=== PATIENT | male | born 1985 | race African-American/Black ===

== ENCOUNTER 2019-01-22 20:32 | Inpatient (IN) | payer BC ==
[2019-01-22 21:44] LABS: ALT (SGPT) 43 U/L (8-55); AST (SGOT) 29 U/L (5-34); Albumin 6.1 g/dL (3.5-5.0); Alkaline Phosphatase 74 U/L (40-110); Anion Gap 20 mmol/L (10-20); BUN (Urea Nitrogen) 25 mg/dL (8.9-20.6); Bilirubin, Total 0.6 mg/dL (0.2-1.2); CK (CPK) 293 U/L (30-200); Calc. Creatinine Clearance 0 mL/min (70-130); Carbon Dioxide 26 mmol/L (22-29); Chloride 95 mmol/L (98-107); Estimated GFR-MDRD 20; Globulin 4.8 g/dL (2.4-3.5); Glucose 161 mg/dL (70-105); Potassium 5.3 mmol/L (3.5-5.1); Protein, Total 10.9 g/dL (6.0-8.3); Sodium 136 mmol/L (136-145)
[2019-01-22 22:02] LABS: Band 2 % (5-11); Hemoglobin 18.9 g/dL (14.0-18.0); Lymphocytes 3 % (21-51); MDiff Complete? YES; Mean Corpuscular HGB CONC 34.7 g/dL (32.0-36.0); Mean Corpuscular Hemoglobin 33.7 pg (27.0-31.0); Mean Platelet Volume 7.7 fL (7.4-10.4); Monocytes 3 % (0-10); Neutrophil 92 % (42-75); Platelet Count 249 thou/uL (130-400); Platelet Morphology Comment Appears Adequate; RBC Distribution Width 11.6 % (11.5-14.5); RBC Morphology Normal; White Blood Cell (WBC) Count 17.8 thou/uL (4.8-10.8)
--- NOTE | 2019-01-22 23:10 | PDOC.FPRHP ---
- History of Present Illness Chief Complaint: Dizziness, Cramping History of Present Illness: Mr. 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 He reports sweating profusely while at work, which is outside and requires a considerable amount of PPE, and reports minimal water intake during that time. At approximately 1300, he began to feel nauseated and vomited twice. Despite drinking 1 bottle of water , he continued to feel poorly and also began to have feelings of lightheadedness. He was able to finish his shift, but only after considerable fatigue and discomfort. Once he returned home, he began to experience full-body cramps and required considerable assistance from his to put on clothes and drive to the ED. Per the patient's , his voice seemed raspier than normal, and he was almost too weak to answer questions upon arrival. He denies any syncopal episodes or known trauma, headaches, visual or auditory disturbances, cough, sore throat, chest pain, SOB, diarrhea or dysuria, known recent illness or sick contacts, or acute intoxication from EtOH or illicit drugs. ED Course: While in the ED, Mr. Bailey received a 2L NS bolus via IV and reportedly began to feel much better. - Allergies/Adverse Reactions Allergies Allergy/AdvReac Type Severity Reaction Status Date / Time No Known Allergies Allergy Verified 01/23/19 02:47 - Home Medications Comments: None - History PMHx: None PSHx: Inguinal Hernia Repair FHx: Mother (DM, HTN) Social: Social EtOH. Denies tobacco or drug abuse. - Review of Systems General: reports: fatigue. denies: fever/chills, night sweats Eyes: denies: eye pain, vision changes ENT: denies: nasal congestion, rhinorrhea Respiratory: denies: cough, shortness of breath Cardiovascular: denies: chest pain, edema Gastrointestinal: reports: nausea, vomiting. denies: diarrhea, constipation, abdominal pain, GI bleeding Genitourinary: reports: other (Denies any blood in urine). denies: dysuria, polyuria Skin: denies: rashes, lesions, itching Musculoskeletal: reports: stiffness, swelling (Girlfriend reports having feet swelling.). denies: pain Neurological: denies: numbness Psychological: denies: anxiety, depression - Vital signs BP: [124/82] HR: [91] RR: [18] Tmax: [98.9] Pox: [97]% on [RA] Wt: [] - Physical Exam Constitutional: NAD, awake, alert and oriented, well developed HEENT: normocephalic and atraumatic, PERRLA, EOMI, conjunctiva clear, no scleral icterus, grossly normal vision, grossly normal hearing, other (Mucous membranes appeared pale, dry) Neck: supple, FROM, trachea midline, no LAD Chest: no-tender to palpation, no lesions Heart: RRR, normal S1/S2, no murmurs/rubs/gallops, pulses present, no edema Lungs: CTAB, no respiratory distress, good air movement, no rales/rhonchi, no wheezing, no retractions Abdomen: soft, non-tender, bowel sounds present, no masses/distention, no hernias Musculoskeletal: normal structure, normal tone, ROM grossly normal Neurological: no focal deficit Skin: no rash/lesions, other (Cap Refill > 3) Heme/Lymphatic: no unusual bruising or bleeding, no purpura, no petechia, no LAD Psychiatric: normal mood and affect, good judgment and insight, intact recent and remote memory FMR H&P: Results - Labs Result Diagrams: 01/23/19 03:37 01/23/19 03:37 Lab results: WBC 17.8 thou/uL (4.8-10.8) H 01/22/19 21:15 Hgb 18.9 g/dL (14.0-18.0) H 01/22/19 21:15 Hct 54.4 % (42.0-52.0) H 01/22/19 21:15 MCV 97.0 fL (78.0-98.0) 01/22/19 21:15 Plt Count 249 thou/uL (130-400) 01/22/19 21:15 Band Neuts % (Manual) 2 % (5-11) L 01/22/19 21:15 Sodium 136 mmol/L (136-145) 01/22/19 21:15 Potassium 5.3 mmol/L (3.5-5.1) H 01/22/19 21:15 Chloride 95 mmol/L (98-107) L 01/22/19 21:15 Carbon Dioxide 26 mmol/L (22-29) 01/22/19 21:15 BUN 25 mg/dL (8.9-20.6) H 01/22/19 21:15 Creatinine 3.49 mg/dL (0.7-1.3) H 01/22/19 21:15 Glucose 161 mg/dL (70-105) H 01/22/19 21:15 Calcium 12.0 mg/dL (7.8-10.44) H 01/22/19 21:15 Total Bilirubin 0.6 mg/dL (0.2-1.2) 01/22/19 21:15 AST 29 U/L (5-34) 01/22/19 21:15 ALT 43 U/L (8-55) 01/22/19 21:15 Alkaline Phosphatase 74 U/L (40-110) 01/22/19 21:15 Creatine Kinase 293 U/L (30-200) H 01/22/19 21:15 Serum Total Protein 10.9 g/dL (6.0-8.3) H 01/22/19 21:15 Albumin 6.1 g/dL (3.5-5.0) H 01/22/19 21:15 FMR H&P: A/P - Plan 1. Dehydration -Patient's HPI, ROS and physical exam are consistent w/ dehydration, likely 2/2 to poor PO intake and outdoor employment -Patient's condition improved greatly s/p 2L NS bolus in the ED -Continue fluid resuscitation w/ LR @ 200 ml/hr -Encourage additional PO intake 2. DAVE -Cr: 3.49 -CPK: 290 -Continue to trend lab values to evaluate progression of rehydration efforts -See #1 Code Status: Full DVT PPx: SCDs Diet: Heart Healthy w/ Low Sodium Activity: Ad Madeleine Dispo: Patient admitted to the Medical Floor for aggressive fluid resuscitation. Will continue to trend Cr and CPK in order to evaluated for resolving DAVE and potential rhabdomyolysis. Expected LOS < 24H. FMR H&P: Upper Level - Pertinent history I was present with the biology internship. I scribed the above HPI. I agree with above and made edits as needed. - Pertinent findings Cap refill >5 seconds. Mucous membranes dry. - Plan Date/Time: 01/22/192307 Isrrael Mcknight, PGY-3, have evaluated this patient and agree with findings/ plan as outlined by biology internship resident. Pertinent changes/additions are listed here. Pt has DAVE with Cr at 3 2/2 dehydration. CK 293. No concern for rhabdo at this time. Pt labs show hemoconcentration 2/2 dehydration. K 5.3. EKG shows no abnormalities. Pt reports feeling better after fluid bolus in ER. Will continue with fluid rescusitation w/ NS@200ml/hr. Will trend AM labs. Will continue to monitor Urine output. Addendum - Attending - Attending Attestation Date/Time: 01/23/191946 I personally evaluated the patient and discussed the management with Dr. Ritter and De prior to midnight last night. I agree with the History, Examination, Assessment and Plan documented above with any addition or exceptions noted below.
[2019-01-23] MEDS ORDERED: Ondansetron ODT 4 MG TAB PO PRN (00:15)
[2019-01-23] MEDS ORDERED: Acetaminophen 325 MG TAB PO PRN (00:15)
[2019-01-23 01:05] LABS: Bacteria/HPF None Seen HPF (None Seen); Bilirubin Negative (Negative); Blood, Urine Trace (Negative); Clarity Turbid (Clear); Glucose, Urine (Dipstick) Normal (Negative); Leukocyte Negative Leu/uL (Negative); Mucous/LPF Rare LPF (<2+); Nitrite Negative (Negative); Protein, Urine (Dipstick) 30 mg/dL (Neg-Trace); RBC/HPF 0-3 HPF (0-3); Squamous Epithelial 0-3 HPF (0-3); Urobilinogen Normal mg/dL (Less than 2)
[2019-01-23 01:15] LABS: Amphetamine Not Detected (NotDetected); Barbiturates Screen Not Detected (NotDetected); Benzodiazepine Screen Not Detected (NotDetected); Cocaine Metabolite Screen Not Detected (NotDetected); Medtox Control Line Valid? VALID (VALID); Medtox Reader # READER 4; Methadone Not Detected (NotDetected); Methamphetamine Not Detected (NotDetected); Opiate Screen Not Detected (NotDetected); Oxycodone Screen Not Detected (NotDetected); Phencyclidine (PCP) Not Detected (NotDetected); THC/Cannabinoid Screen Not Detected (NotDetected); Tricyclic Screen Not Detected (NotDetected)
[2019-01-23 01:27] VITALS: BMI 23.3
[2019-01-23] MEDS: Sodium Chloride 0.9% 1,000 ML IV SCH ×4 (01:49→17:48)
--- NOTE | 2019-01-23 02:41 | PDOC.FM ---
- Objective Vital Signs & Weight: Vital Signs (12 hours) Temp Pulse Resp BP Pulse Ox 01/23/19 01:30 98 01/23/19 01:20 98.1 F 86 18 107/46 L 98 Weight Weight 65.771 kg Result Diagrams: 01/22/19 21:15 01/22/19 21:15 Addendum - Attending - Attending Attestation Date/Time: 01/23/19 0240 I personally evaluated the patient and discussed the management with Dr. Ritter last evening on 01/22/19. I agree with the History, Examination, Assessment and Plan as discussed. H&P pending.
[2019-01-23 03:44] LABS: #Monocytes 0.9 thou/uL (0.11-0.59); #Neutrophils 7.7 thou/uL (1.40-6.50); %Basophils 0.2 % (0.0-1.0); %Eosinophils 0.1 % (0.0-10.0); %Lymphocytes 9.9 % (21.0-51.0); %Monocytes 9.2 % (0.0-10.0); %Neutrophils 80.6 % (42.0-75.0); Hemoglobin 15.4 g/dL (14.0-18.0); Mean Corpuscular HGB CONC 35.4 g/dL (32.0-36.0); Mean Corpuscular Hemoglobin 34.9 pg (27.0-31.0); Mean Corpuscular Volume 98.7 fL (78.0-98.0); Mean Platelet Volume 7.3 fL (7.4-10.4); Platelet Count 200 thou/uL (130-400); RBC Distribution Width 11.7 % (11.5-14.5); Red Blood Cell (RBC) Count 4.42 mill/uL (4.70-6.10); White Blood Cell (WBC) Count 9.6 thou/uL (4.8-10.8)
[2019-01-23 04:15] LABS: ALT (SGPT) 26 U/L (8-55); AST (SGOT) 19 U/L (5-34); Albumin 4.2 g/dL (3.5-5.0); Alkaline Phosphatase 47 U/L (40-110); Anion Gap 12 mmol/L (10-20); BUN (Urea Nitrogen) 23 mg/dL (8.9-20.6); Bilirubin, Total 0.4 mg/dL (0.2-1.2); CK (CPK) 243 U/L (30-200); Calc. Creatinine Clearance 52 mL/min (70-130); Calcium 9.1 mg/dL (7.8-10.44); Carbon Dioxide 25 mmol/L (22-29); Chloride 105 mmol/L (98-107); Estimated GFR-MDRD 51; Globulin 3.1 g/dL (2.4-3.5); Glucose 123 mg/dL (70-105); Potassium 4.6 mmol/L (3.5-5.1); Protein, Total 7.3 g/dL (6.0-8.3); Sodium 137 mmol/L (136-145)
--- NOTE | 2019-01-23 06:41 | PDOC.FM ---
- Subjective Subjective: Pt is doing well. Feels better than yesterday. Denies pain. Did not sleep much through evening secondary to IV attachment. - Objective Vital Signs & Weight: Vital Signs (12 hours) Temp Pulse Resp BP Pulse Ox 01/23/19 05:36 97.6 F 86 19 122/77 97 01/23/19 01:30 98 01/23/19 01:20 98.1 F 86 18 107/46 L 98 Weight Weight 65.771 kg I&O: 01/21/19 01/22/19 01/23/19 06:59 06:59 06:59 Intake Total 1800 Balance 1800 Result Diagrams: 01/23/19 03:37 01/23/19 03:37 Phys Exam - Physical Examination Constitutional: NAD HEENT: PERRLA, moist MMs Respiratory: no wheezing, no rales, no rhonchi Cardiovascular: RRR, no significant murmur Gastrointestinal: soft, non-tender, no distention Musculoskeletal: no edema, pulses present Neurological: non-focal, moves all 4 limbs Psychiatric: normal affect, A&O x 3 Dx/Plan (1) DAVE (acute kidney injury) Code(s): N17.9 - ACUTE KIDNEY FAILURE, UNSPECIFIED Status: Acute (2) Elevated white blood cell count Code(s): D72.829 - ELEVATED WHITE BLOOD CELL COUNT, UNSPECIFIED Status: Acute (3) Elevated creatine kinase Status: Acute - Plan Plan: 1. Dehydration -Patient's HPI, ROS and physical exam are consistent w/ dehydration, likely 2/2 to poor PO intake and outdoor employment -Patient's condition improved greatly s/p 2L NS bolus in the ED -Continue fluid resuscitation w/ LR @ 200 ml/hr -Encourage additional PO intake 2. DAVE - Repeat BMP this afternoon - consider discharge if resolution -Cr: 3.49 --> 1.83 -CPK: 290 --> 243 -See #1 3. Hyperglycemia - follow up outpt Code Status: Full DVT PPx: SCDs Diet: Heart Healthy w/ Low Sodium Activity: Ad Madeleine Dispo: Patient admitted to the Medical Floor for aggressive fluid resuscitation. Will continue to trend Cr and CPK in order to evaluated for resolving DAVE and potential rhabdomyolysis; next check at 1300 today, possible d /c if continued improvement. Expected LOS < 24H.
[2019-01-23] MEDS ORDERED: Melatonin 3 MG TAB PO SCH (20:45)
[2019-01-24] MEDS: Sodium Chloride 0.9% 1,000 ML IV SCH ×3 (00:15→07:59)
--- NOTE | 2019-01-24 06:56 | PDOC.FM ---
- Subjective Subjective: Pt is doing well w/o complaints. He is urinating. No fevers/chills. No edema. - Objective Vital Signs & Weight: Vital Signs (12 hours) Temp Pulse Resp BP Pulse Ox 01/23/19 19:30 96 01/23/19 19:27 98.1 F 68 20 105/61 96 Weight Weight 65.771 kg I&O: 01/22/19 01/23/19 01/24/19 06:59 06:59 06:59 Intake Total 1800 6663 Output Total 3050 Balance 1800 3613 Result Diagrams: 01/23/19 03:37 01/24/19 06:40 Phys Exam - Physical Examination Constitutional: NAD HEENT: PERRLA, moist MMs Respiratory: no wheezing, no rales, clear to auscultation bilateral Cardiovascular: RRR, no significant murmur Gastrointestinal: soft, non-tender, no distention Musculoskeletal: no edema, pulses present Dx/Plan (1) DAVE (acute kidney injury) Code(s): N17.9 - ACUTE KIDNEY FAILURE, UNSPECIFIED Status: Acute (2) Elevated white blood cell count Code(s): D72.829 - ELEVATED WHITE BLOOD CELL COUNT, UNSPECIFIED Status: Acute (3) Elevated creatine kinase Status: Acute - Plan Plan: 1. Dehydration -Patient's HPI, ROS and physical exam are consistent w/ dehydration, likely 2/2 to poor PO intake and outdoor employment -Continue fluid resuscitation -Encourage additional PO intake 2. DAVE -Cr: 3.49 --> 1.83 -CPK: improving with fluids -See #1 - pt's BUN:Crea indicated possible intra-renal etiology/post-obstructive. If problem persists or happens again should consider multi-factorial etiology. 3. Hyperglycemia - follow up outpt Code Status: Full DVT PPx: SCDs Diet: Heart Healthy w/ Low Sodium Activity: Ad Madeleine Dispo: Pt will likely be discharged this afternoon pending kidney function labs.
[2019-01-24 07:28] LABS: Anion Gap 7 mmol/L (10-20); BUN (Urea Nitrogen) 11 mg/dL (8.9-20.6); Calc. Creatinine Clearance 98 mL/min (70-130); Carbon Dioxide 25 mmol/L (22-29); Chloride 110 mmol/L (98-107); Estimated GFR-MDRD Greater than 90; Glucose 124 mg/dL (70-105); Potassium 4.9 mmol/L (3.5-5.1); Sodium 137 mmol/L (136-145)
[2019-01-24 08:19] VITALS: BP 126/79; TEMP 97.9
--- NOTE | 2019-01-25 00:32 | DIS ---
DATE OF ADMISSION: 01/22/2019 DATE OF DISCHARGE: 01/24/2019 RESIDENT: Cy Andersen DO ADMITTING ATTENDING: Migue Quevedo MD DISCHARGE ATTENDING: Ralph Baltazar MD CONSULTS: None. PROCEDURES: None. PRIMARY DIAGNOSES: 1. Acute kidney injury secondary to dehydration. 2. Dehydration. 3. Elevated blood sugars. SECONDARY DIAGNOSIS: None. DISCHARGE MEDICATIONS: None. HISTORY OF PRESENT ILLNESS/HOSPITAL COURSE: Mr. Bailey is a 33-year-old male, who presented to the emergency department with severe dehydration and found to have an acute kidney injury, creatinine was elevated to 3.49. He had no significant past medical history and has had no problems with chronic kidney injury. 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 He states he had fluid losses secondary to heat, and he did not replace his fluids adequately. He states that he did have 2 episodes of emesis and became nauseated. He was not having any other symptoms other than the elevated creatinine on arrival and signs of dehydration. In the emergency department, he received 2 L normal saline bolus and started to feel better. The next morning after receiving about a total of 3 L normal saline fluid, he states he began feeling better. Throughout his stay, he was placed on normal saline at 200 mL/h. On second day, his creatinine is 1.83 and finally by discharge, his creatinine had gone down to 0.98. He was urinating adequately and felt much better by the time of discharge. He had not taken any medications previously that might signify potential for kidney injury. Of note, his glucose was elevated at 161 on arrival, at time of discharge was down to 124. He follows up with his primary care physician, who would be care for him to be evaluated for diabetes. Of note, his creatine kinase was 293 and was downward trending by the time he was discharged. DISPOSITION: Stable. DISCHARGE INSTRUCTIONS: 1. Location: [facility]. 2. Diet: No restrictions. 3. Activity: Ad truong, but be cautious of severe dehydration in the future. 4. Followup: Follow up as needed with [facility]. The patient was instructed to stay well hydrated while he is working on the oil rig. If he begins to experience these symptoms again, he should follow up with the emergency department. Job ID: [id number] [facility]
--- NOTE | 2019-01-26 05:44 | PQF ---
[employer] Crystal Reports Winform ViewerJAN LILLY ROBERT A MD [phone] CLINICAL DOCUMENTATION CLARIFICATION FORM: POST DISCHARGE Addendum to original discharge summary date: ____ Late entry note date: __ DATE: 01/26/19 ATTN: Ralph Baltazar Please exercise your independent, professional judgment in responding to the clarification form. Clinical indicators are provided on the bottom of this form for your review Kindly clarify regarding ruled in/ruled out rhabdomylosis Please check appropriate box(s) to clarify if the following diagnosis has been ruled in or ruled out: Rhabdomylosis [ ] Ruled in diagnosis [ ] Continue to treat [ ] Resolved [ ] Ruled out diagnosis [ ] Cannot rule out diagnosis [ ] Other diagnosis [ ] Unable to determine For continuity of documentation, please document condition throughout progress notes and discharge summary. Thank You. CLINICAL INDICATORS - SIGNS / SYMPTOMS / LABS ED diagnosis is rhabdomyolysis - ED report Will continue to tred Cr and CPK in order to evaluate for resolving DAVE and potential rhabdomyolysis - H and P Creatine kinase is 293 on 01/22 and 243 on 01/23 - Laboratory RISK FACTORS Dehydration - H and P DAVE - H and P TREATMENTS IV fluids started on 01/23 - Medications (This form is maintained as a part of the permanent medical record) 2014 [employer]. All Rights Reserved [email or web address] [phone] [email or web address]
== END 2019-01-24 16:08 | disposition home or self-care (01) | DRG 641 ==
LOC: ERS 20:32 → T4-B 22:00
PROVIDERS: ADMIT Family Medicine; ATTEND Family Medicine
DX: E86.0 Dehydration (principal); N17.9 Acute kidney failure, unspecified; R73.9 Hyperglycemia, unspecified; D72.829 Elevated white blood cell count, unspecified; Z98.890 Other specified postprocedural states
CPT/HCPCS: 36415; 80048; 80053; 80306; 81003; 81015; 82550; 85025; 94760; 96360; 96361